=== PATIENT | male | born 2000 | race Caucasian/White ===

== ENCOUNTER → 2021-02-25 | Day surgery (SDC) | payer OTHER ==
[~2021-02-25] VITALS: Ht 182.9 cm; Wt 52.2 kg
[~2021-02-25] MED LIST: ACETAMINOPHEN500 M1 PO
[2021-02-25 10:54] LABS: BASOPHIL 0.9 % (0-2); EOSINOPHIL 5.4 % (0-5); HCT 45.5 % (42.0-52.0); HGB 15.8 g/dl (13.2-18.0); LYMPHOCYTE 32.7 % (15-48); MCHC 34.7 g/dL (32.0-36.0); MCV 89.2 fL (78.0-100.0); MONOCYTE 9.7 % (0-12); MPV 11.7 fL (6.0-9.5); NEUTROPHIL 50.4 % (41-80); NRBC 0; PLT 170 K/uL (150-400); RDW 12.1 % (11.5-14.0); WBC 6.5 K/uL (4.0-10.5)
== END | disposition home or self-care (01) ==
LOC: FAS 09:33
PROVIDERS: Oral & Maxillofacial Surgery
DX: K02.9 Dental caries, unspecified (principal); K04.7 Periapical abscess without sinus; F41.9 Anxiety disorder, unspecified; Z79.891 Long term (current) use of opiate analgesic; F17.210 Nicotine dependence, cigarettes, uncomplicated
CPT/HCPCS: 36415; 85025; J1100; J2250; J2405; J2704; J7120